=== PATIENT | female | born 1995 | race American Indian/Alaskan Native ===

== ENCOUNTER 2019-01-07 20:08 | Emergency (ER) | payer SELFPAY ==
[2019-01-07 20:12] VITALS: BP 134/80
[2019-01-07 21:35] LABS: Bilirubin,Urine NEG (Negative); Blood,Urine NEG (Negative); Color,Urine Yellow (Yellow); Mucus,Urine 1+ /HPF; Protein,Urine <15 mg/dL mg/dL (Negative); Urobilinogen,Urine < 2.0 mg/dL (<2.0)
[2019-01-07 21:49] LABS: HCG Qualitative,Urine Positive (Negative)
== END 2019-01-07 22:02 | disposition left against medical advice (07) ==
LOC: ED 20:08
DX: R10.2 Pelvic and perineal pain (principal); Z53.21 Procedure and treatment not carried out due to patient leaving prior to being seen by health care provider
CPT/HCPCS: 81001; 81025

== ENCOUNTER 2019-01-10 15:00 | Emergency (ER) | payer MEDICAID, OTHER ==
--- NOTE | 2019-01-10 15:51 | Event Note ---
ED Screening Note ED Screening Note: pt states that she is having back pain that began a week ago no fall or injury no numbness or weakness no urinary sx +white vaginal discharge no itching, no burning +sexually active, states she uses protection no PMHx no daily meds LNMP: December 18 non smoker +occ drinker no drug use This initial assessment/diagnostic orders/clinical plan/treatment(s) is/are subject to change based on patients health status, clinical progression and re- assessment by fellow clinical providers in the ED. Further treatment and workup at subsequent clinical providers discretion. Patient/guardian urged not to elope from the ED as their condition may be serious if not clinically assessed and managed. Initial orders include: UA, urine preg, wet prep
[2019-01-10 16:45] LABS: HCG Qualitative,Urine Positive (Negative)
[2019-01-10 16:51] LABS: Bacteria,Urine 2+ /HPF (Negative); Bilirubin,Urine NEG (Negative); Blood,Urine NEG (Negative); Color,Urine Yellow (Yellow); Mucus,Urine 3+ /HPF; Protein,Urine <15 mg/dL mg/dL (Negative); Urobilinogen,Urine < 2.0 mg/dL (<2.0)
[2019-01-10] MEDS ORDERED: TYLENOL PO ONE (18:08)
--- NOTE | 2019-01-10 18:19 | Emergency Department Report ---
<NELSON BOURGEOIS - Last Filed: 01/10/19 18:06> ED Female HPI - General Chief complaint: Urogenital-Female Stated complaint: BACK PAIN/HEADACHES/DISCHARGE Time Seen by Provider: 01/10/19 15:49 Source: patient Mode of arrival: Ambulatory Limitations: No Limitations - History of Present Illness Initial comments: 23 y/o pt states that she is having back pain that began a week ago she reports that the back pain starts from just below cervical area down to the mid back. no fall or injury no numbness or weakness no urinary sx +white vaginal discharge no itching, no burning +sexually active, states she uses protection no PMHx no daily meds LNMP: December 18 non smoker +occ drinker no drug use Onset/Timin -: week(s) Severity scale (0 -10): 0 Consistency: intermittent Are you Now?: No Last Menstrual Period: 12/18/18 EDC: 09/24/19 - Related Data Previous Rx's Medication Instructions Recorded Last Taken Type Cyclobenzaprine [Flexeril] 10 mg PO Q8H PRN #15 tablet 01/10/19 Unknown Rx Vit-Fe Fumar-FA [ 1 tab PO QDAY #30 tablet 01/10/19 Unknown Rx Vitamin] cephALEXin [Keflex] 500 mg PO Q6HR #40 capsule 01/10/19 Unknown Rx metroNIDAZOLE [Flagyl] 500 mg PO Q12HR #14 tab 01/10/19 Unknown Rx Allergies Allergy/AdvReac Type Severity Reaction Status Date / Time No Known Allergies Allergy Verified 01/07/19 20:11 ED Review of Systems Comment: All other systems reviewed and negative Constitutional: denies: chills, fever Eyes: denies: eye pain, eye discharge, vision change ENT: denies: ear pain, throat pain Respiratory: denies: cough, shortness of breath, wheezing Cardiovascular: denies: chest pain, palpitations Endocrine: no symptoms reported Gastrointestinal: denies: abdominal pain, nausea, diarrhea Genitourinary: denies: urgency, dysuria, discharge Musculoskeletal: denies: back pain, joint swelling, arthralgia Skin: denies: rash, lesions Neurological: denies: headache, weakness, paresthesias Psychiatric: denies: anxiety, depression Hematological/Lymphatic: denies: easy bleeding, easy bruising ED Past Medical Hx - Past Medical History Previous Medical History?: No - Surgical History Past Surgical History?: No - Social History Smoking Status: Never Smoker Substance Use Type: None - Medications Home Medications: Home Medications Medication Instructions Recorded Confirmed Last Taken Type Cyclobenzaprine [Flexeril] 10 mg PO Q8H PRN #15 tablet 01/10/19 Unknown Rx Vit-Fe Fumar-FA [ 1 tab PO QDAY #30 tablet 01/10/19 Unknown Rx Vitamin] cephALEXin [Keflex] 500 mg PO Q6HR #40 capsule 01/10/19 Unknown Rx metroNIDAZOLE [Flagyl] 500 mg PO Q12HR #14 tab 01/10/19 Unknown Rx ED Physical Exam - General Limitations: No Limitations General appearance: alert, in no apparent distress - Head Head exam: Present: atraumatic, normocephalic - Eye Eye exam: Present: normal appearance - ENT ENT exam: Present: mucous membranes moist - Neck Neck exam: Present: normal inspection - Respiratory Respiratory exam: Present: normal lung sounds bilaterally. Absent: respiratory distress - Cardiovascular Cardiovascular Exam: Present: regular rate, normal rhythm. Absent: systolic murmur, diastolic murmur, rubs, gallop - GI/Abdominal GI/Abdominal exam: Present: soft, normal bowel sounds - Extremities Exam Extremities exam: Present: normal inspection - Back Exam Back exam: Present: normal inspection, tenderness (mid back tenderness) - Neurological Exam Neurological exam: Present: alert, oriented X3, normal gait - Psychiatric Psychiatric exam: Present: normal affect, normal mood - Skin Skin exam: Present: warm, dry, intact, normal color. Absent: rash ED Disposition Clinical Impression: Acute urinary tract infection, Spasm of thoracic back muscle, at early stage, Vaginal discharge Disposition: DC- TO HOME OR SELFCARE Condition: Stable Instructions: (ED), Urinary Tract Infection in Women (ED), Muscle Spasm (ED) Additional Instructions: Take medications with food, drink plenty of fluids and follow up with your Primary Care Physician as advised. Consider following up with the Brandie/Nursing Techn for further evaluation in 5-7 days Prescriptions: metroNIDAZOLE [Flagyl] 500 mg PO Q12HR #14 tab Cyclobenzaprine [Flexeril] 10 mg PO Q8H PRN #15 tablet PRN Reason: Muscle Spasm cephALEXin [Keflex] 500 mg PO Q6HR #40 capsule Vit-Fe Fumar-FA [ Vitamin] 1 tab PO QDAY #30 tablet Referrals: JIN GONZALEZ MD [Referring] - 3-5 Days Print Language: CZECH <PIERREJUANCHO CAZARES - Last Filed: 01/10/19 22:34> ED Female HPI - History of Present Illness Quality: sharp Associated Symptoms: vaginal discharge. denies: vaginal bleeding, abdominal pain, nausea/vomiting, fever/chills, headaches, loss of appetite, hematuria, shortness of breath, syncope, weakness - Related Data Sexually active: Yes : 0 Para: 0 A: 0 ED Review of Systems ROS: Stated complaint: BACK PAIN/HEADACHES/DISCHARGE Other details as noted in HPI ED Course Vital Signs 01/10/19 15:51 Temperature 98.7 F Pulse Rate 89 Respiratory 16 Rate Blood Pressure 127/64 [Left] O2 Sat by Pulse 99 Oximetry - Reevaluation(s) Reevaluation #1: 01/10/19 22:27 Patient is alert and oriented 3 and is not in distress. Pelvic and transvaginal ultrasound showed an IUP of approximately 5 weeks and 5 days, no heart rates noted because of her is still too early. Lab test results were reviewed including urinalysis and are unremarkable except for urinalysis that showed significant urinary tract infection. Patient was treated for pain in the ED and also received 1 g Rocephin IV 1. Patient discharged home on medications and advised to follow-up with an MEDICAL OFFICE REP physician in 5-7 days for reevaluation or return to the ED immediately if symptoms get worse. ED Medical Decision Making - Lab Data Result diagrams: 01/10/19 19:29 01/10/19 18:27 - Radiology Data Transvaginal and Pelvic US shows an IUP of approximately 5 weeks and 5 days, but no Heart Tones yet. The left and right ovaries are unremarkable - Medical Decision Making I assumed care of the patient from Ms. Mady Amaral PA-C at shift change at 1900 hours. The patient had presented to ED with acute onset made posterior thoracic back pain with vaginal discharge. Urinalysis showed acute urinary tract infection and a positive . Labs are drawn and complete and transvaginal ultrasound ordered. Patient was treated for pain in the ED and also received Rocephin 1 g IV for urinary tract infection. On reevaluation, patient is alert and oriented 3 and is not in distress. Pelvic and transvaginal ultrasound showed an IUP of approximately 5 weeks and 5 days, no heart rates noted because of her is still too early. Lab test results were reviewed including urinalysis and are unremarkable except for urinalysis that showed significant urinary tract infection. Patient was treated for pain in the ED and also received 1 g Rocephin IV 1. Patient discharged home on medications and advised to follow-up with an MEDICAL OFFICE REP physician in 5-7 days for reevaluation or return to the ED immediately if symptoms get worse. 01/10/19 22:28 - Differential Diagnosis Muscle spasm of back, early stage, Acute UTI Critical care attestation.: If time is entered above; I have spent that time in minutes in the direct care of this critically ill patient, excluding procedure time. ED Disposition Is pt being admited?: No Does the pt Need Aspirin: No Time of Disposition: 22:15
[2019-01-10 19:44] LABS: Basophils % (Auto) 0.4 % (0.0-1.8); Eosinophils # (Auto) 0.4 K/mm3 (0.0-0.4); Eosinophils % (Auto) 4.3 % (0.0-4.3); Hematocrit 35.6 % (30.3-42.9); Lymphocytes # (Auto) 2.1 K/mm3 (1.2-5.4); Lymphocytes % (Auto) 25.7 % (13.4-35.0); Mean Corpuscular HGB Conc 34 % (30-34); Mean Corpuscular Volume 91 fl (79-97); Monocytes # (Auto) 0.4 K/mm3 (0.0-0.8); Monocytes % (Auto) 5.2 % (0.0-7.3); Platelet Count 233 K/mm3 (140-440)
[2019-01-10 20:14] LABS: Alanine Aminotransferase 7 units/L (7-56); Albumin 4.2 g/dL (3.9-5); BUN/Creatinine Ratio 12; Blood Urea Nitrogen 7 mg/dL (7-17); Calcium 9.8 mg/dL (8.4-10.2); Hemolysis Index 18
[2019-01-10] MEDS ORDERED: ROCEPHIN/NS 1 GM/50 ML 1 GM/50 ML BAG IV ONE (20:30)
--- NOTE | 2019-01-10 21:04 | Ultrasound Report ---
PROCEDURE: US OB <= 14 WEEKS FETUS TECHNIQUE: Real-time limited sonographic examination was performed using transabdominal and transvag inal imaging for evaluation of the fetus with image documentation (1 or more fetuses). HISTORY: back pain . Positive test with serum beta hCG quantitation 17,398 (6-7 weeks pregn leonel). LMP 12/18/2018 with estimated age 3 weeks 2 days and EDC 09/24/2019 COMPARISONS: None FINDINGS: MATERNAL Uterus: Enlarged measuring 10.2 x 6.4 x 7.0. Fibroids: There is an isoechoic fibroid in the anterior fundus measuring 4.5 x 2.7 x 4.4 cm. Internal Os: closed FETUS IUP: Single intrauterine with tiny pole and yolk sac barely visualized Gestational sac average diameter: 13.8 mm Estimated gestational age: 5 weeks 5 days Heart rate and rhythm: No cardiac activity is monitored at this early date Estimated Due Date (earliest scan): 09/07/2019 OVARIES: Both ovaries appear normal in size and echogenicity with normal blood flow bilaterally. Th e right ovary measures 2.9 x 2.0 x 2.7 cm and the left ovary measures 2.8 x 1.6 x 2.3 cm in size. Cor pus luteum is present in the right ovary. IMPRESSION: 1. Single intrauterine gestation at approximately 5 weeks 5 days 2. EDC by US 09/25/2019 3. heart rate could not be obtained but this may be due to the early gestational age. 4. Fibroid in the anterior fundus of the uterus This document is electronically signed by Geovanna Malagon MD., January 10 2019 09:02:55 PM ET
[2019-01-10 22:57] VITALS: BP 118/72
== END 2019-01-10 22:59 | disposition home or self-care (01) ==
LOC: ED 15:00
DX: O26.891 Other specified pregnancy related conditions, first trimester (principal); R10.2 Pelvic and perineal pain; Z3A.01 Less than 8 weeks gestation of pregnancy
CPT/HCPCS: 36415; 76801; 76817; 80053; 81001; 81025; 84702; 85025; 87086; 96365; 99284; J0696

== ENCOUNTER 2019-09-02 04:16 | Inpatient (IN) | payer MEDICAID ==
--- NOTE | 2019-09-02 04:47 | History and Physical Report ---
History of Present Illness Date of examination: 09/02/19 Date of admission: 09/02/19 04:24 Chief complaint: Labor History of present illness: Pt is a 24yo BF EDC 09/06/19; EGA 39 2/7 weeks presents to L&D complaining of RUC's q 2-3 mins. She received care with Dr Porter but records are not available and GBS is unknown. Past History Past Medical History: asthma Past Surgical History: no surgical history Social history: no significant social history, single - Obstetrical History Expected Date of Delivery: 09/07/19 Actual Gestation: 39 Week(s) 2 Day(s) Medications and Allergies Allergies Allergy/AdvReac Type Severity Reaction Status Date / Time No Known Allergies Allergy Verified 01/07/19 20:11 Home Medications Medication Instructions Recorded Confirmed Last Taken Type Cyclobenzaprine [Flexeril] 10 mg PO Q8H PRN #15 tablet 01/10/19 Unknown Rx Vit-Fe Fumar-FA [ 1 tab PO QDAY #30 tablet 01/10/19 Unknown Rx Vitamin] cephALEXin [Keflex] 500 mg PO Q6HR #40 capsule 01/10/19 Unknown Rx metroNIDAZOLE [Flagyl] 500 mg PO Q12HR #14 tab 01/10/19 Unknown Rx Review of Systems All systems: negative - Physical Exam Breasts: Positive: deferred Cardiovascular: Regular rate Lungs: Positive: Clear to auscultation Abdomen: Positive: normal appearance Genitourinary (Female): Positive: normal external genitalia Vagina: Positive: normal moisture Uterus: Positive: enlarged Extremities: Positive: normal - Obstetrical FHR: category 1 Uterine Contraction Monitor Mode: External Cervical Dilatation: 10 Cervical Effacement Percentage: 100 station: +2 Uterine Contraction Pattern: Regular Uterine Tone Measurement Phase: Contraction Uterine Contraction Intensity: Strong/Firm Results All other labs normal. Assessment and Plan - Patient Problems (1) 39 weeks gestation of Onset Date: 09/02/19 Current Visit: Yes Status: Acute Plan to address problem: A: IUP @ 39 2/7 weeks in labor Meconium fluid P: Admit to L&D for expectant vaginal delivery Obtain records
[2019-09-02] MEDS ORDERED: ePHEDrine SULFATE 50 MG/1 ML INJ IV PRN (04:49)
[2019-09-02] MEDS ORDERED: TERBUTALINE 1 MG/1 ML INJ IVP PRN (04:49)
[2019-09-02] MEDS ORDERED: TERBUTALINE 1 MG/1 ML INJ SUB-Q PRN (04:49)
[2019-09-02] MEDS ORDERED: LIDOCAINE (2%) 20 MG/1 ML VIAL 20 ML MDV INFILTRATI ONE (04:49)
[2019-09-02] MEDS ORDERED: MINERAL OIL 30 ML ORAL LIQD PO PRN (04:49)
--- NOTE | 2019-09-02 04:49 | Procedure Note ---
OB Delivery Note - Delivery Date of Delivery: 09/02/19 Surgeon: ANDREW FELDER Estimated blood loss: 100cc - Vaginal Delivery presentation: vertex Delivery position: OA Intrapartum events: meconium, precipitous labor- <3hr Delivery induction: none Delivery augmentation: rupture of membranes Delivery monitor: external FHT, external uterine Route of delivery: Delivery placenta: spontaneous Delivery cord: nuchal cord, 3 umbilical vessels Episiotomy: none Delivery laceration: none Anesthesia: none Delivery comments: delivered OA and placed on Mom's chest for [id number] bonding and delayed cord clamping, cut by Grandma - A at 1 minute: 8 at 5 minutes: 9 Infant Gender: Male (3049gms)
[2019-09-02] MEDS ORDERED: OXYTOCIN DRIP 30 UNITS/500 ML BAG IV SCH (05:00)
[2019-09-02] MEDS ORDERED: LACTATED RINGERS 1,000 ML IV SCH (05:00)
[2019-09-02] MEDS ORDERED: OXYTOCIN 20 UNIT/1000ML DRIP 20 UNITS/1,000 ML BAG IV SCH (05:00)
[2019-09-02] MEDS ORDERED: MAGNESIUM HYDROXIDE (MOM) ORAL LIQD UDC PO PRN (05:01)
[2019-09-02] MEDS ORDERED: PROMETHAZINE 25 MG RECT SUPP PR PRN (05:01)
[2019-09-02] MEDS ORDERED: diphenhydrAMINE 25 MG CAP PO PRN (05:01)
[2019-09-02] MEDS ORDERED: ACETAMINOPHEN 325 MG TAB PO PRN (05:01)
[2019-09-02] MEDS ORDERED: LANOLIN/ZINC/DIMETHICONE (LANSINOH) 7 GM TP PRN (05:01)
[2019-09-02] MEDS ORDERED: PROMETHAZINE 25 MG TAB PO PRN (05:01)
[2019-09-02] MEDS ORDERED: WITCH HAZEL/ GLYCERIN PAD TP PRN (05:01)
[2019-09-02] MEDS ORDERED: ONDANSETRON 4 MG/2 ML INJ IV PRN (05:01)
[2019-09-02] MEDS: OXYTOCIN 20 UNIT/1000ML DRIP 20 UNITS/1,000 ML BAG IV SCH ×2 (05:14→05:34)
[2019-09-02] MEDS: IBUPROFEN 600 MG TAB PO SCH ×3 (06:23→23:35)
[2019-09-02 07:43] LABS: Hematocrit 39.5 % (30.3-42.9); Hemoglobin 12.9 gm/dl (10.1-14.3); Mean Corpuscular HGB Conc 33 % (30-34); Mean Corpuscular Volume 94 fl (79-97); Platelet Count 159 K/mm3 (140-440); Red Blood Count 4.19 M/mm3 (3.65-5.03)
[2019-09-02] MEDS ORDERED: PRENATAL VIT27-FE FUMARATE-FOLIC ACID VIT TAB PO SCH (10:00)
[2019-09-02] MEDS ORDERED: ALBUTEROL 2.5 MG/3 ML NEBU IH PRN (14:27)
[2019-09-02 17:06] LABS: Hemoglobin 10.6 gm/dl (10.1-14.3)
[2019-09-02] MEDS: HYDROcodone/ACETAMINOPHEN 5-325 MG TAB PO PRN (18:14)
[2019-09-02] MEDS: FERROUS SULFATE 325 MG TAB PO SCH (23:35)
[2019-09-03] MEDS ORDERED: TETANUS,DIPH,PERTUSS(ACELL) VACCINE 0.5 ML SYRINGE IM ONE (05:01)
[2019-09-03] MEDS: IBUPROFEN 600 MG TAB PO SCH (05:44)
[2019-09-03] MEDS ORDERED: MEASLES, MUMPS & RUBELLA 12,500 UNIT/0.5 ML VACCINE SUB-Q ONE (06:00)
[2019-09-03] MEDS: HYDROcodone/ACETAMINOPHEN 5-325 MG TAB PO PRN (08:50)
[2019-09-03] MEDS: FERROUS SULFATE 325 MG TAB PO SCH (08:51)
--- NOTE | 2019-09-03 10:31 | Progress Note ---
Assessment and Plan A: PP day I Stable P: Follow Routine Orders D/C home in the AM RTO in 6 Weeks Subjective - Subjective Date of service: 09/03/19 Patient reports: appetite normal, voiding normally, pain well controlled, flatus, ambulating normally : doing well Objective - Vital Signs Latest vital signs: Vital Signs Temp Pulse Pulse Resp Resp BP BP 09/03/19 08:30 97.8 F 73 20 115/73 09/03/19 02:41 97.4 F L 74 20 108/65 09/02/19 18:15 97.5 F L 74 18 108/62 09/02/19 18:14 18 09/02/19 14:46 96 H 19 09/02/19 14:21 18 09/02/19 12:45 97.6 F 88 18 93/57 Pulse Ox 09/03/19 08:30 09/03/19 02:41 96 09/02/19 18:15 98 09/02/19 18:14 09/02/19 14:46 09/02/19 14:21 09/02/19 12:45 93 Intake and Output 09/02/19 09/03/19 09/03/19 22:59 06:59 14:59 Intake Total 240 480 120 Output Total 400 Balance -160 480 120 Intake: Oral 240 480 120 Output: Urine 400 Void 400 Other: Total, Intake Amount 240 240 120 Total, Output Amount 400 # Voids Void 1 1 1 - Exam Breasts: Present: normal Cardiovascular: Present: Regular rate Lungs: Present: Clear to auscultation, Normal air movement Abdomen: Present: normal appearance, soft, normal bowel sounds Uterus: Present: normal, firm, fundal height below umbilicus Extremities: Present: normal
--- NOTE | 2019-09-03 10:33 | Discharge Summary ---
Providers - Providers Date of Admission: 09/02/19 04:24 Date of discharge: 09/04/19 Attending physician: YONATAN HOOD Primary care physician: YONATAN HOOD Hospitalization Reason for admission: active labor Delivery: Episiotomy: none Laceration: none complications: none Discharge diagnosis: IUP at term delivered baby: male Condition at discharge: Good Disposition: DC-01 TO HOME OR SELFCARE Plan - Provider Discharge Summary Activity: routine, no sex for 6 weeks, no heavy lifting 4 weeks, no strenuous e xercise Diet: routine Instructions: routine Additional instructions: [] Smoking cessation referral if applicable(refer to patient education folder for contact #) [] Refer to [facility] Booklet Call your doctor immediately for: * Fever > 100.5 * Heavy vaginal bleeding ( >1 pad per hour) * Severe persistent headache * Shortness of breath * Reddened, hot, painful area to leg or breast * Drainage or odor from incision. * Keep incision clean and dry at all times and follow doctor's instructions regarding bathing/showering - Follow up plan Follow up: YONATAN HOOD MD [Primary Care Provider] - 6 Weeks
[2019-09-03 18:14] VITALS: BP 118/73
== END 2019-09-03 19:00 | disposition home or self-care (01) | DRG 775 ==
LOC: TRG 04:16 → LD 04:24 → OB 09:30
PROVIDERS: ADMIT Obstetrics & Gynecology; ATTEND Obstetrics & Gynecology
PROC: 10E0XZZ Delivery of Products of Conception, External Approach (ICD-10-PCS; principal; 2019-09-02)
PROC: 3E0234Z Introduction of Serum, Toxoid and Vaccine into Muscle, Percutaneous Approach (ICD-10-PCS; 2019-09-03)
PROC: 3E0134Z Introduction of Serum, Toxoid and Vaccine into Subcutaneous Tissue, Percutaneous Approach (ICD-10-PCS; 2019-09-03)
DX: O62.3 Precipitate labor (principal); O77.0 Labor and delivery complicated by meconium in amniotic fluid; O69.81X0 Labor and delivery complicated by cord around neck, without compression, not applicable or unspecified; O99.52 Diseases of the respiratory system complicating childbirth; J45.909 Unspecified asthma, uncomplicated; Z3A.39 39 weeks gestation of pregnancy; Z37.0 Single live birth; Z79.899 Other long term (current) drug therapy; Z23 Encounter for immunization
CPT/HCPCS: 36415; 85014; 85018; 85027; 86592; 86850; 86900; 86901; 90471; 90707; 90715; 94640; G0378; G0008; J2590